=== PATIENT | male | born 1935 | race Two or more races ===

== ENCOUNTER 2021-10-08 10:12 | Inpatient (IN) | payer MEDICARE, OTHER ==
[~2021-10-08] VITALS: Ht 165.1 cm; Wt 65.1 kg
[2021-10-08 11:01] LABS: BASOPHILS % 1.3 % (0.0-2.0); EOSINOPHILS % 10.3 % (0.0-5.0); HEMOGLOBIN. 12.9 g/dL (14.0-18.0); LYMPHOCYTES % 25.2 % (20.0-50.0); MEAN CORPUSCULAR HEMOGLOBIN 32.8 pg (28.0-32.0); MEAN CORPUSCULAR VOLUME 98.9 fL (80.0-94.0); MEAN PLATELET VOLUME 7.9 fl (7.4-10.4); MONOCYTES % 8.4 % (2.0-8.0); NEUTROPHILS % 54.8 % (40.0-76.0); PLATELET 124 x1000/uL (130-400); RED BLOOD CELL COUNT 3.95 mill/uL (4.7-6.1); RED CELL DISTRIBUTION WIDTH 14.4 % (11.6-14.6)
[2021-10-08 11:10] LABS: PARTIAL THROMBOPLASTIN TIME 26.2 sec (23.4-31.0); PROTHROMBIN TIME 10.7 sec (9.6-11.0)
[2021-10-08] MEDS ORDERED: ATOR40TA70 PO (11:41)
[2021-10-08] MEDS ORDERED: LOSA1TAB37 MT (11:42)
[2021-10-08] MEDS ORDERED: LOSA-20 PO (11:43)
[2021-10-08] MEDS ORDERED: TAMS-11 PO (11:44)
[2021-10-08] MEDS ORDERED: IODIXANOL 320MG/ML 100 ML BOTTLE IV ONE ×2 (12:05→12:28)
[2021-10-08] MEDS ORDERED: LIDOCAINE HCL 1% 10 MG/ML 10ML VIAL ONE (12:06)
[2021-10-08] MEDS ORDERED: HEPARIN 1000 UNITS/ML 10ML ONE (12:06)
[2021-10-08] MEDS ORDERED: MIDAZOLAM HCL 2 MG/2 ML VIAL ONE (12:51)
[2021-10-08] MEDS ORDERED: FENTANYL CITRATE/PF 50MCG/ML 2ML VIAL ONE (12:51)
[2021-10-08] MEDS ORDERED: DEXAMETHASONE 4MG/ML 1ML VIAL ONE (12:56)
[2021-10-08] MEDS ORDERED: ONDANSETRON HCL 4MG/2ML INJ ONE (12:56)
[2021-10-08] MEDS ORDERED: CEFAZOLIN 1000MG PREMIX 50 ML IV ONE (13:01)
[2021-10-08] MEDS ORDERED: PROTAMINE SULFATE 10MG/ML VIAL 5ML IV ONE (13:50)
[2021-10-08 15:54] LABS: HEMATOCRIT 35.1 % (42.0-52.0); HEMOGLOBIN 11.7 g/dL (14.0-18.0); MEAN CORPUSCULAR HEMOGLOBIN 32.8 pg (28.0-32.0); MEAN CORPUSCULAR VOLUME 98.6 fL (80.0-94.0); PLATELET 103 x1000/uL (130-400); RED BLOOD CELL COUNT 3.56 mill/uL (4.7-6.1); RED CELL DISTRIBUTION WIDTH 14.2 % (11.6-14.6)
[2021-10-08 16:14] VITALS: BP 154/92
[2021-10-08 16:34] VITALS: BP 146/89
[2021-10-08 18:09] VITALS: BP 178/92
[2021-10-08 20:00] VITALS: BP 124/62
[2021-10-08] MEDS ORDERED: ACETAMINOPHEN 325MG TABLET PO PRN (21:00)
[2021-10-08] MEDS ORDERED: ATORVASTATIN CALCIUM 40MG TABLET PO SCH (21:30)
[2021-10-08 22:00] VITALS: BP 101/70
[2021-10-08] MEDS ORDERED: ONDANSETRON HCL 4MG/2ML INJ IV PRN (23:15)
[2021-10-08] MEDS ORDERED: NITROGLYCERIN 0.4MG TABLET SL SL PRN (23:15)
[2021-10-08] MEDS ORDERED: ZOLPIDEM TARTRATE 5MG TABLET PO PRN (23:15)
[2021-10-08] MEDS ORDERED: TRAMADOL 50MG TABLET PO PRN (23:15)
[2021-10-08] MEDS ORDERED: DOCUSATE SODIUM 100MG CAPSULE PO PRN (23:15)
[2021-10-08] MEDS ORDERED: CLONIDINE 0.1MG TABLET PO PRN (23:15)
[2021-10-08] MEDS ORDERED: IPRATROPIUM/ALBUTEROL 0.5-3(2.5)MG/3ML NEB NEB PRN (23:15)
[2021-10-08] MEDS ORDERED: MAGNESIUM/ALUMINUM HYDROXIDE/SIMETHICONE 30ML UDC PO PRN (23:15)
[2021-10-08] MEDS ORDERED: GUAIFENESIN 200MG/10ML SUGAR FREE UDC PO PRN (23:15)
[2021-10-08] MEDS ORDERED: NA PHOS,M-B/NA PHOS,DI-BA ENEMA 118ML PR PRN (23:15)
[2021-10-09] VITALS (8 sets, daily range): BP systolic 123–150; BP diastolic 75–95
[2021-10-09] MEDS ORDERED: TAMSULOSIN HCL 0.4MG SR CAPSULE PO SCH (09:00)
[2021-10-09] MEDS ORDERED: FAMOTIDINE 20MG TABLET PO SCH (09:00)
== END 2021-10-09 13:00 | disposition home or self-care (01) | DRG 254 ==
LOC: CCL 10:12 → 5EST 16:06
PROVIDERS: ADMIT Internal Medicine; ATTEND Internal Medicine
PROC: 04WY3DZ Revision of Intraluminal Device in Lower Artery, Percutaneous Approach (ICD-10-PCS; principal; 2021-10-08)
DX: T82.310A Breakdown (mechanical) of aortic (bifurcation) graft (replacement), initial encounter (principal); I10 Essential (primary) hypertension; D63.8 Anemia in other chronic diseases classified elsewhere; I71.4 Abdominal aortic aneurysm, without rupture; N40.0 Benign prostatic hyperplasia without lower urinary tract symptoms; E78.00 Pure hypercholesterolemia, unspecified; Y83.8 Other surgical procedures as the cause of abnormal reaction of the patient, or of later complication, without mention of misadventure at the time of the procedure; Y92.89 Other specified places as the place of occurrence of the external cause
CPT/HCPCS: 34710; 36415; 75625; 80048; 85025; 85027; 87426; A4657; C1760; C1769; C1874; C1887; C1893; J0690; J1100; J1644; J2250; J2405; J2720; J3010; J3490; Q9967